=== PATIENT | female | born 1940 | race Caucasian/White ===

== ENCOUNTER 2017-09-07 09:12 | Emergency (ER) | payer MEDICARE, OTHER ==
[~2017-09-07] VITALS: Ht 180.3 cm; Wt 90.7 kg
--- OUTSIDE RECORDS SUMMARY | ~2017-09-07 | XMS | Clinical Summary ---
Demographics + + + | Address | [address] | | | [place] [address] | + + + | Home Phone | | + + + | Preferred Language | Unknown | + + + | Marital Status | | + + + | Yazidi Affiliation | Unknown | + + + | Race | White | + + + | Ethnic Group | Not or | + + + Author + + + | Organization | Unknown | + + + | Address | Unknown | + + + | Phone | Unavailable | + + + Support +------+ + + + | Name | Relationship | Address | Phone | +------+ + + + ECON | LAURA [place] | | +------+ + + + Care Team Providers + +------+ + | Care Neurology Technician Name | Role | Phone | + +------+ + PP | Unavailable | + +------+ + Source Comments SAMIRA is fully live on both [facility] Ambulatory and [facility] InPatient.[facility] Allergies Not on File Current Medications Not on file Active Problems Not on file Social History + +-------+ +--------+------+ | Tobacco Use | Types | Packs/Day | Years | Date | | | | | Used | | + +-------+ +--------+------+ | Never Assessed | | | | | + +-------+ +--------+------+ + + + | Sex Assigned at | Date Recorded | | | | + + + | Not on file | | + + + Plan of Treatment + + + + + | Health Maintenance | Due Date | Last Done | Comments | + + + + + | INFLUENZA VACCINE | | | | | (FLU SHOT) | 7 | | | + + + + + Results Not on filefrom Last 3 Months"
--- OUTSIDE RECORDS SUMMARY | ~2017-09-07 | XMS | Clinical Summary ---
Demographics + + + | Address | [address] | | | [place] [address] | + + + | Home Phone | | + + + | Preferred Language | Unknown | + + + | Marital Status | | + + + | Rastafari Affiliation | Unknown | + + + [...] Team Providers + +------+ + | Care Oyster Grower Name | Role | Phone | + +------+ + PP | Unavailable | + +------+ + Source Comments SAMIRA is fully live on both [facility] Ambulatory and [facility] InPatient.[facility] Allergies Not on File Current Medications Not [...]
[~2017-09-07 09:12] MED LIST: CALCIUM + VITA1 EACH PO; CLONAZEPAM0.5 MG PO; FLOVENT HFA12 G1 INH; LEVOTHYROXINE75 MCG PO; SIMVASTATIN20 MG PO; TYLENOL325 MG PO
[2017-09-07] MEDS ORDERED: OSELTAMIVIR PHO75 MG PO (09:33)
== END 2017-09-07 10:04 | disposition home or self-care (01) ==
LOC: ED 09:12
DX: J11.1 Influenza due to unidentified influenza virus with other respiratory manifestations (principal); Z88.1 Allergy status to other antibiotic agents; Z88.8 Allergy status to other drugs, medicaments and biological substances; Z88.5 Allergy status to narcotic agent; Z88.2 Allergy status to sulfonamides; Z79.899 Other long term (current) drug therapy
CPT/HCPCS: 71046; 99283

== ENCOUNTER 2018-09-26 10:23 | Observation (INO) | payer MEDICARE, OTHER ==
[~2018-09-26] VITALS: Ht 180.3 cm; Wt 87.3 kg
--- NOTE | ~2018-09-26 | STRESS ---
[facility] [address] [facility] [place], [place] [address] Draft DATE OF STUDY: 09/28/2018 STUDY: EKG stress test. STRESS TEST SUMMARY: The patient was stressed according to Tenzin protocol. Achieved a work level of 4.6 METs. Resting heart rate was 59 beats per minute with resting blood pressure of 143/76 mmHg. Resting EKG showed sinus rhythm with no ischemic changes. The patient was stressed according to Tenzin protocol for 3 minutes and 54 seconds. Heart rate increased to 157 beats per minute, representing 112% of maximal age predicted heart rate. Blood pressure increased to 190/68 mmHg. No chest pain reported. Stress test was stopped due to dyspnea and fatigue. Stress EKG showed frequent premature ventricular contractions and upsloping ST depression that resolved in recovery. CONCLUSION: 1. Asymptomatic maximal EKG stress test with borderline poor functional status and appropriate blood pressure response. 2. Upsloping ST depression with no diagnostic finding to suggest stress-induced ischemia. 3. Moderate risk on Weaver score at this level of exercise. Keshav Reaves MD MA/SHERI /[id number] CC: WILY LARA MD PATIENT NAME: SHANTE MARCELINO Stress test DATE OF : 36 PHYSICIAN: KESHAV REAVES MD REPORT #: [id number] REPORT IS CONFIDENTIAL AND NOT TO BE RELEASED WITHOUT AUTHORIZATION
--- NOTE | ~2018-09-26 | EKG ---
[facility] [place] [facility] [address] [facility] [place], [place] [address] Draft EK completed, results pending confirmation PATIENT NAME: SHANTE MARCELINO Electrocardiogram DATE OF : 36 PHYSICIAN: PRELIMINARY REPORT #: [id number] REPORT IS CONFIDENTIAL AND NOT TO BE RELEASED WITHOUT AUTHORIZATION
[~2018-09-26 10:23] MED LIST changes: +OSELTAMIVIR PHO75 MG PO
--- OUTSIDE RECORDS SUMMARY | 2018-09-26 10:26 | XMS ---
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 [place] VISIT COUNT (12 MO.) 1 IRASEMA [place] TOTAL 1 NOTE: Visits indicate total known visits. ED/UCC VISIT TRACKING (12 MO.) 09/26/2018 10:23 IRASEMA [facility] [place] TYPE: Emergency COMPLAINT: - CHEST DISCOMFORT INPATIENT VISIT TRACKING (12 MO.) No inpatient visits to display in this time frame [id number]
[2018-09-26] MEDS ORDERED: NITROGLYCERIN0.4 MG SL (10:33)
--- NOTE | 2018-09-26 13:16 | EKG ---
[facility] [address] [facility] [place] [address] Signed Normal sinus rhythm Nonspecific ST abnormality Abnormal ECG No previous ECGs available Confirmed by WILL HUIZAR MD ([id number]) on 09/26/2018 1:16:11 PM Electronically Signed By: WILL HUIZAR MD 09/26/18 1316 PATIENT NAME: SHANTE MARCELINO AUGUST Electrocardiogram DATE OF : 36 PHYSICIAN: WILL HUIZAR MD REPORT #: [id number] REPORT IS CONFIDENTIAL AND NOT TO BE RELEASED WITHOUT AUTHORIZATION
[2018-09-26] MEDS ORDERED: LISINOPRIL-HCT1 EAC2 PO (16:39)
--- NOTE | 2018-09-26 19:30 | NUR ---
REPORT RC'D FROM DAY SHIFT NURSE GIGI. REPORTS NO CURRENT CHEST PAIN. PT UP IN BED EATING SOUP.
--- NOTE | 2018-09-26 19:36 | EKG ---
[facility] [address] [place], [place] [address] Signed Normal sinus rhythm Cannot rule out Inferior infarct , age undetermined Abnormal ECG When compared with ECG of 26-SEP-2018 10:25, No significant change was found Confirmed by SALLY DUARTE MD ([id number]) on 09/26/2018 7:36:43 PM Electronically Signed By: SALLY DUARTE MD 09/26/18 1936 PATIENT NAME: SHANTE MARCELINO Electrocardiogram DATE OF : 36 PHYSICIAN: SALLY DUARTE MD REPORT #: [id number] REPORT IS CONFIDENTIAL AND NOT TO BE RELEASED WITHOUT AUTHORIZATION
--- NOTE | 2018-09-26 22:30 | NUR ---
PT RESTING IN BED WITH EYES CLOSED, RESPIRATIONS EVEN AND UNLABORED, NO ACUTE CHANGES.
--- NOTE | 2018-09-26 23:30 | NUR ---
PT UP IN BED, A&O X4, RESPONDING APPROPRAITELY. DENEIS CHEST PAIN, NITRO PASTE IN PLACE, SINUS RHYTHM. LUNGS CLEAR THROUGHOUT. BOWEL TONES ACTIVE X4, DENIES NAUSEA. SBA TO BSC. VARIOUS BRUISING NOTED THROUGHOUT. VARICOSITIES NOTED TO BLE. C/O OF "SINUS PRESSURE," NASAL SPRAY GIVEN. ORIENTED TO ROOM AND CALL LIGHT, VERBALIZED UNDERSTANDING. DENIES OTHER NEEDS.
--- NOTE | 2018-09-26 23:41 | NUR ---
PT C/O CHEST PRESSURE THAT WOKE HER WITH RIGHT SIDED HEAD PRESSURE. STRENGTH EQUAL BILATERALLY, NO FACIAL DROOPING, SPEECH APPROPRIATE. DENIES CONTINUED CHEST PRESSURE. VITAL SIGNS UNCHANGED. DR. DUARTE NOTIFIED, CONTINUE TO MONITOR. 650 MG TYLENOL GIVEN. PT STATES RIGHT HEAD PAIN GONE BUT C/O OF LEFT EYE PRESSURE, COOL RAG GIVEN. DENIES OTHER NEEDS. CALL LIGHT WITHIN REACH.
--- NOTE | 2018-09-27 02:16 | NUR ---
NO ACUTE CHANGES. PT RESTING IN BED WITH EYES CLOSED, RESPIRATIONS EVEN AND UNLABORED.
--- NOTE | 2018-09-27 04:27 | NUR ---
CALL LIGHT ANSWERED, PT ASSISTED TO BSC, GAIT STEADY, DENIES LIGHTHEADEDNESS. VOIDED 400ML YELLOW URINE. ASSISTED BACK TO BED. DENIES CHEST OR HEAD PAIN AT THIS TIME. LUNG CLEAR THROUGHOUT ON ROOM AIR. DENIES NAUSEA, BOWEL TONES ACTIVE. DENIES OTHER NEEDS. CALL LIGHT WITHIN REACH.
--- NOTE | 2018-09-27 05:30 | NUR ---
PT RESTING IN BED WITH EYES CLOSED, RESPIRATIONS EVEN AND UNLABORED.
--- NOTE | 2018-09-27 06:50 | NUR ---
PT RESTED FOR MAJORITY OF SHIFT. PT HAD SINGLE EPISODE OF CHEST PRESSURE UPON WAKING THAT RESOLVED, VITAL SIGNS REMAINED WNL, RHYTHM WNL. C/O OF EYE AND SINUS PRESSURE, 650 MG TYLENOL GIVEN WITH RELIEF. PT CALLS APPROPRIATELY. VOIDING QS. NO ACUTE CHANGES THROUGHOUT SHIFT.
--- NOTE | 2018-09-27 08:30 | NUR ---
PT UP OUT OF BED AMBULATING TO THE TOILET. PT IS STAND BY ASSIST ONLY, ARYA ACTIVITY WELL. PT IS ABLE TO DO OWN MORNING CARES, BRUSH TEETH AND WASH FACE. PT ABLE TO VOID. THEN AMBULATED BACK TO THE CHAIR. ORDERED BREAKFAST FOR PT. PT DENIES CHEST PAIN, NAUSEA, AND SOB.
--- NOTE | 2018-09-27 09:03 | NUR ---
IS IN THE ROOM ROUNDING WITH PT. PT SITTING UP IN THE CHAIR AT THIS TIME, DENIES PAIN, NAUSEA, AND SBO. DENIES CHEST PAIN. PT ALERT AND ORIENTED X4, COOPERATIVE AND POLITE.
--- NOTE | 2018-09-27 11:07 | NUR ---
PT UP AMBULATED TO THE BATHROOM WITH ONE PERSON STAND BY ASSIST. PT ARYA ACTIVITY WELL. NO INCREASE IN HR OR WOB NOTED. PT IS ALERT AND ORIENTED X4. PT DENIES PAIN AND NAUSEA AT THIS TIME.
[2018-09-27] MEDS ORDERED: SIMVASTATIN40 MG PO (12:09)
[2018-09-27] MEDS ORDERED: LEVOTHYROXINE88 MCG PO (12:10)
--- NOTE | 2018-09-27 12:14 | NUR ---
PT UP AMBULATED TO THE BATHROOM INDEPENDENTLY. ARYA ACTIVITY WELL. PT COOPERATIVE AND POLITE, ALERT AND ORIENTED X4. PT IS AWARE OF PLAN TO TRANSFER TO THE MED/SURG FLOOR. PT DENIES ANY CHEST PAIN OR SOB AT THIS TIME.
[2018-09-27] MEDS ORDERED: VITAMIN D32000 UNI1 PO (12:28)
--- NOTE | 2018-09-27 12:28 | NUR ---
Medications reconciled using pharmacy records and patient interview. Changes made in med rec: patient now takes levothyroxine 88mcg instead of 75mcg daily, and clarification: patient takes clonazepam 0.5mg TID prn anxiety
--- NOTE | 2018-09-27 12:40 | NUR ---
CALLED REPORT TO ELI ON MED/SURG FLOOR, ALL QUESTIONS ANSWERED.
--- NOTE | 2018-09-27 12:51 | NUR ---
PT ARRIVED TO MED/SURG FROM CCU VIA CHAIR. PT ALERT AND ORIENTED. DENIES CHEST PAIN OR OTHER CONCERNS AT THIS TIME. WAITING FOR LUNCH TO ARRIVE. ASSESSMENT COMPLETED. 2 IV SITES FLUSHED WITH 5ML NS, FLUSH EASILY, DRESSINGS CDI. TELE MONITOR ON. CALL LIGHT WITHIN REACH.
--- NOTE | 2018-09-27 15:38 | NUR ---
PT SITTING UP IN RECLINER WATCHING TV. DENIES NEEDS OR CONCERNS A THIS TIME. CALL LIGHT WITHIN REACH.
--- NOTE | 2018-09-27 18:01 | NUR ---
PT ATE 100% OF DINNER, ARYA WELL. DENIES CHEST PAIN OR OTHER CONCERNS. SBA TO RESTROOM. VOIDED WITHOUT DIFFICULTY. AMB BACK TO RECLINER. CALL LIGHT WITHIN REACH.
--- NOTE | 2018-09-27 19:05 | NUR ---
RECIEVED CHANGE OF SHIFT REPORT FROM ELI ZAIDI. PATIENT SITTING UP IN CHAIR WATCHING TV. WHITE BOARD UPDATED. CALL LIGHT WITHIN REACH. DINNER TRAY REMOVED FROM ROOM.
--- NOTE | 2018-09-27 21:47 | NUR ---
ASSESSMENT COMPLETE. MEDICATIONS ADMINISTERED PER OCT ORDER. PATIENT REPORTS "2/" "ACHE" IN NECK, PRN PAIN MEDICATION PROVIDED. TELE MONITOR 1, PATIENT DENIES CHEST PAIN, SOB, OR DIFFICULTY BREATHING. IV'S ASSESSED TO BE PATENT, WNL. PATIENT REPORTS CHRONIC TINGLING IN BLE. THIS RN SBA PATIENT TO RESTROOM AND BACK TO BED. VITALS ASSESSED AND RECORED. INTAKE AND OUTPUT ASSESSED AND RECORDED. CALL LIGHT WITHIN IN REACH. NO MORE NEEDS AT THIS TIME.
--- NOTE | 2018-09-28 00:13 | NUR ---
ROUNDED ON PATIENT RESTING IN BED WITH EYES CLOSED, RESPIRATORY RATE IS EVEN AND UNLABORED, HR: 57. CALL LIGHT WITHIN REACH. NO MORE NEEDS AT THIS.
--- NOTE | 2018-09-28 02:16 | NUR ---
HELPED PT TO THE BATHROOM AND BACK TO BED. PER HER REQUEST I GAVE HER AN ICE PACK FOR HER NECK. FRESH ICE WATER GIVEN WELL. BEDSIDE TABLE AND CALL LIGHT IN REACH.
--- NOTE | 2018-09-28 02:43 | NUR ---
ROUNDED ON PATIENT LAYING AWAKE IN BED. PATIENT COMPLAINED OF PAIN/SORENESS IN NECK. ADDITIONAL PILLOW PROVIDED TO SUPPORT NECK. PATIENT EXPRESSED RELIEF AFTER NEW PILLOW PLACED. CALL LIGHT WITHIN REACH. NO MORE NEEDS AT THIS TIME.
--- NOTE | 2018-09-28 04:56 | NUR ---
ROUNDED ON PATIENT RESTING IN BED WITH EYES CLOSED, RESPIRATORY RATE EVEN AND UNLABORED. TELE MONITOR, HR: 52. CALL LIGHT WITHIN REACH.
--- NOTE | 2018-09-28 06:00 | NUR ---
ASSESSMENT COMPLETE. MEDICATIONS ADMINISTERED PER OCT ORDER. PATIENT REPORTS "11/25" PAIN IN NECK, PRN PAIN MEDICATION PROVIDED AND REPOSITIONED PATIENT IN BED. IV IN LEFT HAND D/C'd D/T IV LEAKING, D/C'd WNL. DRESSING ON RIGHT HAND CHANGED, IV ASSESSED TO BE PATENT AND WNL. THIS RN SBA PATIENT TO RESTROOM, PATINET DENIES DIZZINESS WITH AMBULATION. FRESH WATER BROUGHT TO PATIENT. TELE MONITOR 1. PATIENT DENIES SOB, DIFFICULT BREATHING OR CHEST PAIN. CALL LIGHT WITHIN REACH. PATIENT BRUSHED TEETH AFTER USING RESTROOM.
--- NOTE | 2018-09-28 06:16 | NUR ---
PATIENT SLEPT FOR MOST OF SHIFT. PATIENT COMPLAINED OF SORE NECK, PRN PAIN MEDICATION PROVIDED X2. SBA. ROOM AIR. TELE MONITOR 1. CARDIAC DIET. PATIENT USES THE CALL LIGHT APPROPRIATELY. IV IN LEFT HAND D/C'd DUE TO LEAKING IV, D/C'd WNL. IV DRESSING ON RIGHT HAND CHANGED THIS SHIFT.
--- NOTE | 2018-09-28 07:14 | EKG ---
[facility] [address] [facility] [place] [address] Signed Normal sinus rhythm Nonspecific ST abnormality Abnormal ECG When compared with ECG of 27-SEP-2018 07:34, (Unconfirmed) Sinus rhythm has replaced Atrial flutter Confirmed by SALLY DUARTE MD ([id number]) on 09/28/2018 7:14:27 AM Electronically Signed By: SALLY DUARTE MD 09/28/18 0714 PATIENT NAME: SHANTE MARCELINO Electrocardiogram DATE OF : 36 PHYSICIAN: SALLY DUARTE MD REPORT #: [id number] REPORT IS CONFIDENTIAL AND NOT TO BE RELEASED WITHOUT AUTHORIZATION
--- NOTE | 2018-09-28 08:47 | NUR ---
PT SITTING UP AT EDGE OF BED EATING BREAKFAST. ALERT AND ORIENTED. DENIES CHEST PAIN OR OTHER CONCERNS THIS AM. PT REPORTS THAT HER ECHO WAS COMPLETED PRIOR TO EATING BREAKFAST. DISCUSSED PLAN FOR STRESS TEST LATER TODAY AND NPO AT 1000, PT AGREEABLE AND VERBALIZED UNDERSTANDING. ASSESSMENT COMPLETED. CALL LIGHT WITHIN REACH.
--- NOTE | 2018-09-28 10:15 | NUR ---
PT SITTING UP IN RECLINER READING. DENIES NEEDS OR CONCERNS. DENIES CHEST PAIN. CALL LIGHT WITHIN REACH.
--- NOTE | 2018-09-28 12:45 | NUR ---
PT SITTING UP IN BED WATCHING TV. PT UPDATED ON POC. PT WAITING FOR STRESS TEST THIS AFTERNOON. SBA TO RESTROOM AND BACK TO BED. CALL LIGHT WITHIN REACH.
--- NOTE | 2018-09-28 15:01 | NUR ---
PT RETURNED FROM STRESS TEST. USED RESTROOM AND AMB BACK TO BED. DENIES CHEST PAIN OR OTHER CONCERNS AT THIS TIME. CALL LIGHT WITHIN REACH.
[2018-09-28] MEDS ORDERED: LISINOPRIL2.5 MG PO (16:07)
[2018-09-28] MEDS ORDERED: FLUTICASONE PRO16 GM NAS (16:07)
== END 2018-09-28 17:00 | disposition home or self-care (01) ==
LOC: ED 10:23 → CCU 10:24 → MS 09-27 12:45
PROVIDERS: ADMIT Internal Medicine
DX: R07.89 Other chest pain (principal); R55 Syncope and collapse; R51 Headache; I10 Essential (primary) hypertension; Z87.09 Personal history of other diseases of the respiratory system; G25.0 Essential tremor; Z79.899 Other long term (current) drug therapy; Z88.1 Allergy status to other antibiotic agents; Z88.5 Allergy status to narcotic agent; Z88.2 Allergy status to sulfonamides; Z88.8 Allergy status to other drugs, medicaments and biological substances
CPT/HCPCS: 36415; 70450; 71045; 80048; 80053; 81001; 83605; 83880; 84439; 84443; 84484; 85025; 85610; 85651; 87040; 93005; 93010; 93306; 99285-25; G0378

== ENCOUNTER 2019-10-04 12:06 | Day surgery (SDC) | payer MEDICARE, OTHER ==
[~2019-10-04] VITALS: Ht 180.3 cm; Wt 90.7 kg
[~2019-10-04 12:06] MED LIST changes: +FLUTICASONE PRO16 GM NAS; +LEVOTHYROXINE88 MCG PO; +LISINOPRIL-HCT1 EAC2 PO; +LISINOPRIL2.5 MG PO; +NITROGLYCERIN0.4 MG SL; +SIMVASTATIN40 MG PO; +VITAMIN D32000 UNI1 PO
--- NOTE | 2019-10-04 14:09 | NUR ---
10/04/19 1409 Quinn,Dawn 1402 PT ARRIVED TO PACU ON 2L VIA NC, PT WAKES EASILY TO TACTILE STIMULI AND FALLS EASILY BACK TO SLEEP. PT DENIES NAUSEA AND PAIN. RESP EVEN AND UNLABORED.
--- NOTE | 2019-10-05 12:13 | OR ---
[facility] [address] [place], [place] [address] Signed DATE OF OPERATION: 10/04/2019 SURGEON: Jocelynn Madrid MD PREOPERATIVE DIAGNOSES: 1. Family history of colon cancer (father). 2. History of polyps (last colonoscopy 2013). POSTOPERATIVE DIAGNOSES: 1. Hyperplastic polyps x2 of rectum. 2. Possible adenomatous polyp at sigmoid (excised). PROCEDURE: Total colonoscopy to cecum with cold morcellation polypectomy x3. ANESTHESIA: Intravenous sedation, fentanyl 150 mcg, Versed 6 mg. INDICATION: This 79-year-old white woman is a patient of ANDREW Mcdowell. She is known to me from the past. She last underwent colonoscopy in 2013, at which time, she was found to have a hyperplastic polyp of the cecum, ileum and right colon. She is symptom-free at this time. She does have family history of colon cancer in her father. She is admitted at this time to undergo surveillance colonoscopy, understand the risks of bleeding, infection, and perforation. FINDINGS: The prep was excellent. Complete colonoscopy was undertaken to the cecum without question. There were diverticula of the sigmoid and left colon. She had three polyps, two of which were almost certainly hyperplastic and one which may be adenomatous. All were excised completely. There were no other findings of concern. DESCRIPTION OF PROCEDURE: The patient was brought to the endoscopy suite and placed in lateral decubitus position, given intravenous sedation to the point of slurred speech and nystagmus. Digital rectal examination was normal. An Olympus video colonoscope was passed in the rectum and manipulated throughout the colon noting diverticular changes of the sigmoid and left colon. Scope was ultimately advanced to the cecum. The ileocecal valve and appendiceal orifice were normal. Scope Electronically Signed By: JOCELYNN MADRID MD 10/05/19 1213 PATIENT NAME: SHANTE MARCELINO OPERATIVE REPORT DATE OF : 36 REPORT #: [id number] PHYSICIAN: JOCELYNN MADRID MD PCP: WILY LARA MD REPORT IS CONFIDENTIAL AND NOT TO BE RELEASED WITHOUT AUTHORIZATION [facility] [address] [place], [place] [address] Signed was withdrawn from that point and examination undertaken. Upon withdrawal of scope, showed no sign of abnormality until the sigmoid where a small polyp was noted. This appeared to be adenomatous, most likely. It was excised with cold morcellation technique without problem. The scope was further withdrawn confirming diverticula of the sigmoid colon. In the rectosigmoid were two polyps, both of them hyperplastic in appearance, both excised with cold morcellation technique. Retroflexed view of the rectum showed some hemorrhoidal change, but no sign of active problem. The scope was straightened, withdrawn, and removed. The patient was taken to recovery room in good condition. CONCLUDING DIAGNOSIS: Polyps x3, uncertain if adenoma x1. PLAN: Recommend high-fiber diet based on diverticulosis. We would recommend repeat colonoscopy in 5 years based on family history, sooner if symptoms. MD YUDY Rider/SHERI /[id number] cc: ANDREW Mcdowell Copies: ~ Electronically Signed By: JOCELYNN MADRID MD 10/05/19 1213 PATIENT NAME: SHANTE MARCELINO OPERATIVE REPORT DATE OF : 36 REPORT #: [id number] PHYSICIAN: JOCELYNN MADRID MD PCP: WILY LARA MD REPORT IS CONFIDENTIAL AND NOT TO BE RELEASED WITHOUT AUTHORIZATION
--- NOTE | 2019-10-06 14:58 | PATH ---
[facility] [address] [place], [place] [address] Signed SPECIMEN(S): A RECTOSIGMOID SPECIMEN(S): B RECTAL POLYPS SPECIMEN SOURCE: A. RECTOSIGMOID B. RECTAL POLYPS CLINICAL HISTORY: Patient history of hyperplastic polyps. MICROSCOPIC DESCRIPTION: Histologic sections of all submitted blocks are examined by light microscopy. These findings, together with the gross examination, support the pathologic diagnosis. FINAL PATHOLOGIC DIAGNOSIS: A. Mucosa, rectosigmoid, biopsy: - Hyperplastic polyp. B. Mucosa, rectum, biopsy: - Hyperplastic polyp. LJA:cml:C2NR GROSS DESCRIPTION: Two specimens are received in two containers, labeled "BI." A. The specimen, labeled "BI, #1," is received in formalin and consists of two hernadez soft tissue fragment(s) that measure 0.4 and 0.4 cm in greatest dimension. The specimen is entirely submitted in cassette (A1). B. The specimen, labeled "BI, #2," is received in formalin and consists of two hernadez soft tissue fragment(s) that measure 0.3 and 0.4 cm in greatest dimension. The specimen is entirely submitted in cassette (B1). FB (under the direct supervision of a pathologist) The Gross Description was prepared using a voice recognition system. The report was reviewed for accuracy; however, sound-alike word errors, addition and/or deletions may occur. If there is any question about this report, please contact Client Services. PERFORMING LABORATORY: The technical component was performed by [facility], [address] [place] [id number] (Java Systems Analyst: Evelyn Stokes MD; CLIA# [id number]). Professional interpretation was performed by PATIENT NAME: SHANTE MARCELINO PATHOLOGY DATE OF : 36 REPORT #: [id number] PHYSICIAN: [facility] PATH[facility] PCP: WILY LARA MD REPORT IS CONFIDENTIAL AND NOT TO BE RELEASED WITHOUT AUTHORIZATION [facility] [address] [place], [place] [address] [facility], [address] [address] (CLIA# [id number]). Diagnostician: Maxim Cloud MD Pathologist Electronically Signed 10/06/2019 Copies: ~ PATIENT NAME: SHANTE MARCELINO PATHOLOGY DATE OF : 36 REPORT #: [id number] PHYSICIAN: [facility] PATHOLOG[facility] PCP: WILY LARA MD REPORT IS CONFIDENTIAL AND NOT TO BE RELEASED WITHOUT AUTHORIZATION
== END 2019-10-04 14:55 | disposition home or self-care (01) ==
LOC: OPS 12:06 → DS 12:12 → OPS 13:00
PROVIDERS: Surgery
PROC: 0DBP8ZZ Excision of Rectum, Via Natural or Artificial Opening Endoscopic (ICD-10-PCS; 2019-10-04)
PROC: 0DBN8ZZ Excision of Sigmoid Colon, Via Natural or Artificial Opening Endoscopic (ICD-10-PCS; principal; 2019-10-04 13:00)
DX: Z12.11 Encounter for screening for malignant neoplasm of colon (principal); K63.5 Polyp of colon; K62.1 Rectal polyp; K57.30 Diverticulosis of large intestine without perforation or abscess without bleeding; F41.0 Panic disorder [episodic paroxysmal anxiety]; G25.0 Essential tremor; E03.9 Hypothyroidism, unspecified; E78.00 Pure hypercholesterolemia, unspecified; Z85.038 Personal history of other malignant neoplasm of large intestine; Z86.010 Personal history of colon polyps; Z88.5 Allergy status to narcotic agent; Z88.2 Allergy status to sulfonamides; Z88.8 Allergy status to other drugs, medicaments and biological substances; Z79.899 Other long term (current) drug therapy; Z80.0 Family history of malignant neoplasm of digestive organs
CPT/HCPCS: 99153; G0500; J0690; J2250; J2405; J3010; J7121

== ENCOUNTER 2024-02-19 08:11 | Emergency (ER) | payer MEDICARE, OTHER ==
[~2024-02-19] VITALS: Ht 180.3 cm; Wt 78.2 kg
--- OUTSIDE RECORDS SUMMARY | 2024-02-19 08:13 | XMS ---
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 [place] VISIT COUNT (12 MO.) 1 IRASEMA [place] TOTAL 1 NOTE: Visits indicate total known visits. ED/UCC VISIT TRACKING (12 MO.) 02/19/2024 08:12 IRASEMA [facility] [place] TYPE: Emergency COMPLAINT: - SOB, THROAT SWELLING INPATIENT VISIT TRACKING (12 MO.) No inpatient visits to display in this time frame [email or web address]
[2024-02-19] MEDS ORDERED: ARNUITY ELLIP100 MCG INH (08:34)
[2024-02-19 08:38] LABS: BASOPHILS 0.6 % (0-2); EOSINOPHILS 6.4 % (0-6); HEMATOCRIT 38.3 % (35.0-50.0); HEMOGLOBIN 12.5 g/dL (12.0-18.0); LYMPHOCYTES 16.1 % (24-44); MCH 30.7 (27-36); MCHC 32.7 g/dl (30-36); MONOCYTES 8.7 % (0-12); NEUTROPHILS 68.2 % (39-80); PLATELET COUNT 196 K/uL (140-440); RBC 4.07 M/ul (4.3-5.7); RDW 14.8 (10.5-15.0)
[2024-02-19 08:58] LABS: ALBUMIN 3.6 g/dL (3.4-5.0); ALBUMIN/GLOBULIN RATIO 0.92 (1.1-2.4); ANION GAP 14.9 (7-21); BILIRUBIN, TOTAL 0.6 ng/dL (0.2-1.0); BUN/CREATININE RATIO 20.45 (6.0-28.6); CALCIUM 8.7 mg/dL (8.5-10.1); CREATININE, SERUM 0.88 mg/dL (0.55-1.02); POTASSIUM 3.9 mmol/L (3.5-5.1); PROTEIN, TOTAL 7.5 g/dL (6.4-8.2)
[2024-02-19] MEDS ORDERED: clonazePAM 0.5 MG TAB PO ONE (09:00)
[2024-02-19 09:47] LABS: BILIRUBIN, URINE NEGATIVE (negative); BLOOD/HGB, URINE TRACE-I (Negative); KETONE, URINE NEGATIVE (Negative); LEUK ESTERASE, URINE TRACE (negative); NITRITE, URINE NEGATIVE (negative)
[2024-02-19 09:59] LABS: BACTERIA, URINE NONE SEEN /hpf (negative); CASTS, URINE NONE SEEN \\lpf; COLLECTION TYPE, URINE CLEAN CATCH; CRYSTALS, URINE NONE SEEN (0-1+); EPITHELIAL CELLS, URINE SQUAMOUS 1+ /lpf (0-1+); RED BLOOD CELLS, URINE 0-1 /hpf (0-5); REFLEX CULTURE, URINE No (No)
[2024-02-19 11:05] VITALS: BP 177/76
== END 2024-02-19 11:04 | disposition home or self-care (01) ==
LOC: ED 08:11
PROVIDERS: Emergency Medicine
DX: R42 Dizziness and giddiness (principal); E78.00 Pure hypercholesterolemia, unspecified; I10 Essential (primary) hypertension; Z79.51 Long term (current) use of inhaled steroids; Z79.899 Other long term (current) drug therapy; Z88.2 Allergy status to sulfonamides
CPT/HCPCS: 36415; 70450; 70496; 70498; 80053; 81001; 85025; 99284-25

== ENCOUNTER 2024-02-26 17:48 | Emergency (ER) | payer MEDICARE, OTHER ==
[~2024-02-26] VITALS: Ht 180.3 cm; Wt 90.0 kg
[~2024-02-26 17:48] MED LIST changes: +ARNUITY ELLIP100 MCG INH
--- OUTSIDE RECORDS SUMMARY | 2024-02-26 17:49 | XMS ---
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 [place] VISIT COUNT (12 MO.) [facility] TOTAL 2 NOTE: Visits indicate total known visits. 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
[2024-02-26 18:00] LABS: BASOPHILS 0.5 % (0-2); EOSINOPHILS 3.7 % (0-6); HEMOGLOBIN 11.6 g/dL (12.0-18.0); LYMPHOCYTES 13.8 % (24-44); MCH 30.9 (27-36); MCHC 33.3 g/dl (30-36); MCV 92.8 fl (81-99); MONOCYTES 12.2 % (0-12); NEUTROPHILS 69.8 % (39-80); PLATELET COUNT 205 K/uL (140-440); RBC 3.77 M/ul (4.3-5.7); RDW 14.9 (10.5-15.0)
[2024-02-26 18:16] LABS: ALBUMIN 3.4 g/dL (3.4-5.0); ANION GAP 12.2 (7-21); BILIRUBIN, TOTAL 0.4 ng/dL (0.2-1.0); BUN/CREATININE RATIO 16.47 (6.0-28.6); CALCIUM 8.5 mg/dL (8.5-10.1); CREATININE, SERUM 0.85 mg/dL (0.55-1.02); MAGNESIUM 1.9 mg/dL (1.8-2.4); POTASSIUM 4.2 mmol/L (3.5-5.1); PROTEIN, TOTAL 6.8 g/dL (6.4-8.2)
[2024-02-26] MEDS ORDERED: MECLIZINE HCL 25 MG TAB PO ONE (18:30)
[2024-02-26 18:52] LABS: BILIRUBIN, URINE NEGATIVE (negative); BLOOD/HGB, URINE TRACE-I (Negative); KETONE, URINE NEGATIVE (Negative); LEUK ESTERASE, URINE NEGATIVE (negative); NITRITE, URINE NEGATIVE (negative); PH, URINE 6.5 (5-7)
[2024-02-26 18:58] LABS: BACTERIA, URINE NONE SEEN /hpf (negative); CASTS, URINE NONE SEEN \\lpf; COLLECTION TYPE, URINE CLEAN CATCH; CRYSTALS, URINE NONE SEEN (0-1+); EPITHELIAL CELLS, URINE SQUAMOUS 1+ /lpf (0-1+); RED BLOOD CELLS, URINE 0-1 /hpf (0-5); REFLEX CULTURE, URINE No (No); WHITE BLOOD CELLS, URINE 0-1 /HPF (0-5)
[2024-02-26] MEDS ORDERED: MECLIZINE HCL25 MG PO (19:24)
[2024-02-26] MEDS ORDERED: NASAL DECONGEST30 MG PO (19:36)
[2024-02-26 19:48] VITALS: BP 136/72
--- NOTE | 2024-02-27 22:50 | EKG ---
[facility] [address] [facility] [place] [address] Signed Normal sinus rhythm Nonspecific ST abnormality Abnormal ECG When compared with ECG of 27-SEP-2018 07:35, Nonspecific T wave abnormality no longer evident in Anterior leads Confirmed by Wendy Nguyễn MD () on 02/27/2024 10:50:44 PM Electronically Signed By: WENDY NGUYỄN MD 02/27/24 2250 PATIENT NAME: SHANTE MARCELINO Electrocardiogram DATE OF : 36 PHYSICIAN: WENDY NGUYỄN MD REPORT #: [id number] REPORT IS CONFIDENTIAL AND NOT TO BE RELEASED WITHOUT AUTHORIZATION
== END 2024-02-26 19:48 | disposition home or self-care (01) ==
LOC: ED 17:48
PROVIDERS: Emergency Medicine
DX: R42 Dizziness and giddiness (principal); R79.89 Other specified abnormal findings of blood chemistry; E78.00 Pure hypercholesterolemia, unspecified; I10 Essential (primary) hypertension; Z79.51 Long term (current) use of inhaled steroids; Z79.899 Other long term (current) drug therapy; Z88.2 Allergy status to sulfonamides
CPT/HCPCS: 36415; 80053; 81001; 83735; 84484; 85025; 93005; 93010; 99284; A9270

== ENCOUNTER 2024-04-14 16:21 | Emergency (ER) | payer MEDICARE, OTHER ==
[~2024-04-14] VITALS: Ht 180.3 cm; Wt 88.7 kg
[~2024-04-14 16:21] MED LIST changes: +MECLIZINE HCL25 MG PO; +NASAL DECONGEST30 MG PO
[2024-04-14] MEDS ORDERED: ALENDRONATE SOD70 MG PO (17:12)
[2024-04-14 17:35] VITALS: BP 154/97
== END 2024-04-14 17:35 | disposition home or self-care (01) ==
LOC: ED 16:21
DX: S51.811A Laceration without foreign body of right forearm, initial encounter (principal); S51.812A Laceration without foreign body of left forearm, initial encounter; S00.11XA Contusion of right eyelid and periocular area, initial encounter; S00.83XA Contusion of other part of head, initial encounter; E78.00 Pure hypercholesterolemia, unspecified; I10 Essential (primary) hypertension; W18.30XA Fall on same level, unspecified, initial encounter; Z79.51 Long term (current) use of inhaled steroids; Z79.899 Other long term (current) drug therapy; Z88.2 Allergy status to sulfonamides
CPT/HCPCS: 99282